=== PATIENT | female | born 1965 | race Caucasian/White ===

== ENCOUNTER 2016-06-02 15:29 | Emergency (ER) | payer BC ==
[2016-06-02 15:36] VITALS: BP 148/76
[2016-06-02 16:02] LABS: Urine Bilirubin Negative (NEGATIVE); Urine Blood Negative /ul (NEGATIVE); Urine Ketone Negative (NEGATIVE); Urine Nitrite Negative (NEGATIVE); Urine Protein Negative (NEGATIVE); Urine Urobilinogen Normal (NORMAL); Urine pH 7.5 pH (5.0-7.0)
[2016-06-02 16:09] LABS: Urine Amorphous Sediment Moderate - 2+ (NONE-FEW); Urine Appearance Slightly Cloudy; Urine Bacteria TRACE; Urine Color Yellow; Urine RBC None Seen /hpf (0-5); Urine WBC None Seen /hpf (0-5)
[2016-06-02] MEDS ORDERED: KETOROLAC TROMETHAMINE 60 MG/2 ML VIAL IM ONE (16:14)
--- NOTE | 2016-06-02 16:14 | ERNOTE ---
Back Pain ER HPI Date of Service: 06/02/16 Presenting Symptoms: hx chronic back pain, other - R. lower back pain Time Seen by Provider: 06/02/16 15:55 Source: patient Exam Limitations: no limitations Immunizations: IMMUNIZATION HX Immunizations Up to Date Yes History of Influenza Vaccine Yes Hx Pneumococcal Vaccination No Allergies/Adverse Reactions: Allergies No Known Allergies Allergy (Verified 06/02/16 15:36) Home Medications: HOME MEDICATIONS Cyclobenzaprine HCl [Flexeril] 10 mg PO TID PRN #30 tab 06/02/16 [Last Taken Unknown] Ibuprofen [Motrin] 800 mg PO .Q8H PRN #30 tablet 06/02/16 [Last Taken Unknown] Narrative: 51yo, F, presents to ED for evaluation of R. sided lumbar pain. She reports pain started approx 3 days ago, but is much worse today. Pain increased with back ROM and with standing. States she does have some chronic back pain, but this pain is "different" than her usual back pain. Denies any recent injury or activities that may have worsened the pain. Timing: Reports: constant Location of pain: Reports: lower back - Right Recent Injury?: Reports: no Modifying Factors - (Improves): Reports: supine position, other - sitting in chair bending forward Modifying Factors - (Worsens): Reports: other - standing Associated Symptoms: Denies: fever/chills, sweating, constipation/incontinence, nausea/vomiting, problems urinating, numbess/weakness in legs Review of Systems - Review of Systems Constitutional: Absent: fever, chills, weakness, fatigue, malaise Respiratory: Absent: shortness of breath, cough, wheezing Cardiology: Absent: chest pain, palpitations, syncope Gastrointestinal/Abdominal: Absent: nausea, vomiting, diarrhea, constipation, abdominal pain Genitourinary: Absent: frequency, pain, dysuria, hematuria Musculoskeletal: Present: back pain Skin: Absent: rash Neurological: Absent: numbness - Patient's Past Medical History Patient History - Medical: Diabetes Type 2 Patient History - Cancer: No Hx of Cancer Patient History - Surgical Procedures: No surgical history LMP (females 10-50): Menopausal - Social History Living Situations: home Smoking Status: Never smoker Alcohol Use: occasionally Drug Use: none Physical Exam - Physical Exam General Appearance: Present: wd/wn, alert, no apparent distress Respiratory: Present: no respiratory distress, normal breath sounds, lungs clear. Absent: crackles, rhonchi, wheezing Cardiovascular/Chest: Present: regular rate, rhythm, no murmur Gastrointestinal/Abdominal: Present: normal bowel sounds, nontender, nondistended, soft Back Exam: Present: normal inspection, normal range of motion, no CVA tenderness , vertebral tenderness - mild lumbar tenderness, other - muscle tenderness to R. lumbar region, pain with back extension and lateral movements, no pain with forward bending, negative straight leg raise Neurological Exam: Present: no motor/sensory deficits - 5/5 strength x 4 extremities ED Progress - Date and Time Seen: Date and Time: 06/02/16 17:20 Reviewed dc plan and results with pt and spouse. - Results and Orders Patient's Lab Results:: I have reviewed the patient's lab results. - Vital Signs Patient's Vital Signs:: I have reviewed the patient's vital signs. Vital Signs: Vital Signs 06/02/16 15:32 Temperature 36.2 C L Pulse Rate 92 Respiratory 16 Rate Blood Pressure 148/76 O2 Sat by Pulse 96 Oximetry - X-Ray X-Ray #1 X-Ray: lumbosacral Interpretation: Reviewed by me X-ray Comments: Patient Patient Name:KATI WOODRUFF Date: 1965 Sex: F Order Number: [id number] Unique Exam ID: [id number] Exam Requested: [id number] - Lumbar Complete W/ Obliques * Date Scheduled: Study Priority: Requesting Service: Requesting Physician: Margaux Valentine Reason for Exam: Radiological Report : Exam Date: 06/02/2016 16:54 Ordering Physician: Margaux Valentine Indication: Low back pain for 6 months getting worse. Technique: AP, lateral, spot lateral and bilateral oblique views of the lumbar spine are evaluated without comparison. Findings: There are five nonrib-bearing lumbar type vertebrae. There is no compression deformities. There is no spondylolysis or spondylolisthesis. There is mild multilevel endplate change but no associated disc space narrowing. No significant facet arthropathy. IMPRESSION: MILD DEGENERATIVE CHANGE WITHOUT ACUTE PROCESS. Electronically signed by Jason Foster D.O.. Approved by: Approval Date: 06-02-2016 Approval Time: 05:06 PM THIS REPORT WAS RECEIVED FROM THE [employer] [facility] - Progress/Reassessment Chief Complaint: Back Pain Departure Clinical Impression: Lumbar strain Qualifiers: Encounter type: initial encounter Qualified Code(s): S39.012A - Strain of muscle, fascia and tendon of lower back, initial encounter - Departure Disposition: Home self-care Condition: Good Instructions: Form - Return To Work, Back Pain, Adult Additional Instructions: Ice or heat to back for 15 min intervals Epsom salt bath soaks to decrease muscle tension Topical biofreeze to help with pain Follow up with your doctor for recheck, if symptoms persist further testing may be needed Return to ER for any severe pain, loss of bowel or bladder Prescriptions: Cyclobenzaprine HCl [Flexeril] 10 mg PO TID PRN #30 tab PRN Reason: Pain Ibuprofen [Motrin] 800 mg PO .Q8H PRN #30 tablet PRN Reason: Pain
[2016-06-02] MEDS ORDERED: CYCLOBENZAPRINE HCL 10 MG TABLET PO ONE (16:15)
[2016-06-02] MEDS ORDERED: KETOROLAC TROMETHAMINE 30 MG/ML VIAL ONE (16:31)
[2016-06-02] MEDS ORDERED: CYCLOBENZAPRINE HCL 10 MG TABLET ONE (16:31)
== END 2016-06-02 17:57 | disposition home or self-care (01) ==
LOC: ER 15:29
DX: S39.012A Strain of muscle, fascia and tendon of lower back, initial encounter (principal); Z78.0 Asymptomatic menopausal state; X58.XXXA Exposure to other specified factors, initial encounter

== ENCOUNTER 2016-06-18 14:23 | Emergency (ER) | payer BC ==
[2016-06-18] MEDS ORDERED: KETOROLAC TROMETHAMINE 30 MG/ML VIAL ONE ×2 (15:45→21:10)
[2016-06-18] MEDS ORDERED: KETOROLAC TROMETHAMINE 30 MG/ML VIAL IM ONE (15:46)
[2016-06-18 16:09] LABS: Urine Appearance Clear; Urine Bilirubin Negative (NEGATIVE); Urine Blood Negative /ul (NEGATIVE); Urine Color Yellow
[2016-06-18 16:10] LABS: Urine Bacteria 1+; Urine Ketone 5 mg/dL (NEGATIVE); Urine Nitrite Negative (NEGATIVE); Urine Protein Negative (NEGATIVE); Urine RBC None Seen /hpf (0-5); Urine Urobilinogen Normal (NORMAL); Urine WBC 0-5 /hpf (0-5)
[2016-06-18] MEDS ORDERED: DICYCLOMINE HCL 10 MG/ML AMPUL IM ONE ×2 (17:11→17:16)
--- NOTE | 2016-06-18 17:25 | ERNOTE ---
Back Pain ER HPI Date of Service: 06/18/16 Time Seen by Provider: 06/18/16 17:06 Source: patient Exam Limitations: no limitations Immunizations: IMMUNIZATION HX Immunizations Up to Date Yes History of Influenza Vaccine Yes Hx Pneumococcal Vaccination No Allergies/Adverse Reactions: Allergies No Known Allergies Allergy (Verified 06/18/16 15:43) Home Medications: HOME MEDICATIONS Cyclobenzaprine HCl [Flexeril] 10 mg PO TID PRN #30 tab 06/02/16 [Last Taken Unknown] Ibuprofen [Motrin] 800 mg PO .Q8H PRN #30 tablet 06/02/16 [Last Taken Unknown] Dicyclomine HCl [Bentyl] 10 - 20 mg PO TID #80 tab 06/19/16 [Last Taken Unknown] Narrative: Pt. comes in with R lateral back pain that radiates to her RLQ and worsens with defecation for 2 days. Pt. states that she had a small bowel movement today but had to strain and had only small hard stool. Pt. denies any Fevers, nausea , vomiting, SOB, CP, but does state that she has had lack of appetite since onset of symptoms and feels dehydrated. Pt. has been taking Ibuprofen and zanaflex for pain without relief. Review of Systems - Review of Systems Constitutional: Present: no symptoms reported. Absent: recent illness, fever, chills, fatigue, malaise EYE: Present: no symptoms reported ENT: Present: no symptoms reported Respiratory: Present: no symptoms reported. Absent: shortness of breath, cough , wheezing Cardiology: Present: no symptoms reported. Absent: chest pain, palpitations, edema Gastrointestinal/Abdominal: Present: constipation, abdominal pain, eating less, drinking less. Absent: nausea, vomiting, diarrhea Genitourinary: Present: no symptoms reported Musculoskeletal: Present: no symptoms reported. Absent: back pain, joint pain Skin: Present: no symptoms reported Neurological: Present: no symptoms reported. Absent: headache, dizziness/light- headedness, numbness, tingling All Other Systems: All systems neg except as marked - Patient's Past Medical History Patient History - Medical: Diabetes Type 2 Patient History - Cancer: No Hx of Cancer Patient History - Surgical Procedures: No surgical history LMP (females 10-50): Menopausal - Social History Living Situations: home Smoking Status: Never smoker Alcohol Use: occasionally Drug Use: none Physical Exam - Physical Exam General Appearance: Present: wd/wn, alert, no apparent distress Eye Exam: Normal inspection: bilateral, PERRL: bilateral, EOMI: bilateral Ears, Nose, Throat: Present: normal ENT inspection, hearing grossly normal, normal pharynx Neck: Present: normal inspection, nontender. Absent: lymphadenopathy (R), lymphadenopathy (L) Respiratory: Present: no respiratory distress, normal breath sounds, no accessory muscle use, chest nontender, lungs clear Cardiovascular/Chest: Present: regular rate, rhythm, no murmur, normal peripheral pulses Gastrointestinal/Abdominal: Present: normal bowel sounds, nondistended, soft, no organomegaly, tenderness - RLQ Back Exam: Present: normal inspection, normal range of motion, no CVA tenderness , no vertebral tenderness Extremity Exam: Present: normal inspection, non-tender, no edema, normal range of motion Neurological Exam: Present: alert, oriented, normal mood/affect, no motor/ sensory deficits, in mold coater II-XII nml as tested, normal cerebellar test Skin Exam: Present: normal color, warm/dry. Absent: pallor, skin rash ED Progress - Date and Time Seen: Date and Time: 06/18/16 20:48 Pt. with large results and still with severe pain. will CT to assess for diverticular disease or appendectomy. - Results and Orders Patient's Lab Results:: I have reviewed the patient's lab results. - Vital Signs Patient's Vital Signs:: I have reviewed the patient's vital signs. Vital Signs: Vital Signs 06/18/16 15:38 Temperature 35.9 C L Pulse Rate 69 Respiratory 16 Rate Blood Pressure 178/106 O2 Sat by Pulse 96 Oximetry - X-Ray X-Ray #1 X-Ray: abdomen Interpretation: Interp. by me X-ray Comments: severe stool retention. - CT/Ultrasound CT/Ultrasound Narrative: CT scan without mass gallbladder or appendiceal disease but with diverticulosis. - Progress/Reassessment Chief Complaint: Back Pain Departure Clinical Impression: Constipation Qualifiers: Constipation type: slow transit constipation Qualified Code(s): K59.01 - Slow transit constipation Diverticulosis Qualifiers: Diverticulosis site: diverticulosis of large intestine Diverticulosis bleeding : diverticulosis without bleeding Qualified Code(s): K57.30 - Diverticulosis of large intestine without perforation or abscess without bleeding - Departure Disposition: Home self-care Condition: Good Instructions: Diverticulosis, Constipation, Adult, [id number] Additional Instructions: Please follow up with primary provider to discuss colonoscopy need. Take fiber daily. Start Miralax 1 capful daily. Prescriptions: Dicyclomine HCl [Bentyl] 10 - 20 mg PO TID #80 tab
[2016-06-18 17:26] LABS: Hematocrit 45.2 % (37.0-47.0); Hemoglobin 15.2 gm/dL (12.5-16.0); Mean Corpuscular Hemoglobin 31.9 pg (27-31); Mean Corpuscular Hgb Conc 33.6 g/dl (32-36); Mean Platelet Volume 9.2 fl (6.0-9.5); Neutrophil # 6.7 K/mm3 (1.3-6.0); Neutrophil % 75.5 % (42-75.0); Platelet Count 274 K/mm3 (150-450); Red Blood Count 4.76 M/mm3 (4.2-5.4); Red Cell Distribution Width 12.8 % (11.5-14.0); White Blood Count 8.9 K/mm3 (4.0-10.5)
[2016-06-18 17:37] LABS: Albumin * 4.2 gm/dl (3.4-5.0); Anion Gap 13.2 mmol/L (6.8-13.8); BUN/Creatinine Ratio 28.9 (9.0-21.6); Bilirubin, Total 0.8 mg/dL (0.0-1.1); Calcium * 10.5 mg/dL (7.9-10.9); Carbon Dioxide 32.6 mmol/L (24-32.6); Potassium 3.8 mmol/L (3.4-4.6); Total Protein 7.6 gm/dL (6.2-8.2)
[2016-06-18] MEDS ORDERED: NORMAL SALINE 1,000 ML IV ONE (17:52)
[2016-06-18] MEDS ORDERED: KETOROLAC TROMETHAMINE 30 MG/ML VIAL IV ONE (20:47)
[2016-06-18] MEDS ORDERED: DIATRIZOATE MEGLU/DIATRIZO SOD 30 ML BTL PO ONE (20:47)
[2016-06-18] MEDS ORDERED: DIATRIZOATE MEGLU/DIATRIZO SOD 30 ML BTL ONE (21:10)
[2016-06-18 21:21] VITALS: BP 167/102
[2016-06-19] MEDS ORDERED: DICYCLOMINE HCL 10 MG CAPSULE PO ONE (00:03)
[2016-06-19] MEDS ORDERED: DICYCLOMINE HCL 20 MG TABLET ONE (00:07)
== END 2016-06-19 00:12 | disposition home or self-care (01) ==
LOC: ER 14:23
DX: K59.01 Slow transit constipation (principal); K57.30 Diverticulosis of large intestine without perforation or abscess without bleeding